=== PATIENT | male | born 1955 | race Caucasian/White ===

== ENCOUNTER 2020-01-08 11:32 | Emergency (ER) | payer OTHER ==
[~2020-01-08] VITALS: Ht 170.2 cm; Wt 90.7 kg
[2020-01-08 11:34] VITALS: BP 106/44
--- NOTE | 2020-01-08 11:42 | NUR ---
64 y/o male [place] from car c/o dizziness and generalized weakness. Pt states he was seen at [facility] 10 days ago for pneumonia, Covid negative at that time. States 6/10 aching pain to right arm. Denies syncope, awake and alert. GCS 15 at this time. VSS, placed on bedside monitor. medhx: stroke, cardiac, HTN, anxiety
--- NOTE | 2020-01-08 11:59 | NUR ---
Dr Carr at bedside examining pt
--- NOTE | 2020-01-08 12:05 | NUR ---
Lab at bedside for blood draw
--- NOTE | 2020-01-08 12:14 | NUR ---
X-Ray at bedside.
--- NOTE | 2020-01-08 12:32 | NUR ---
Contact information-- pts son Stefan [phone]
[2020-01-08 12:36] LABS: BASOPHILS # (AUTO) 0.1 K/uL (0.00-0.22); BASOPHILS % (AUTO) 0.7 % (0.0-2.0); EOSINOPHILS % (AUTO) 0.1 % (0.0-4.0); HEMOGLOBIN 10.9 g/dL (12.0-18.0); LYMPHOCYTES # (AUTO) 0.6 K/uL (2.0-11.5); LYMPHOCYTES % (AUTO) 3.1 % (20.5-51.1); MEAN CORPUSCULAR HEMOGLOBIN 26 pg (27-31); MEAN CORPUSCULAR HGB CONC 32 g/dL (33-37); MEAN CORPUSCULAR VOLUME 79.8 fL (80-94); MONOCYTES # (AUTO) 0.7 K/uL (0.8-1.0); MONOCYTES % (AUTO) 3.6 % (1.7-9.3); NEUTROPHILS # (AUTO) 17.5 K/uL (1.8-7.7); NEUTROPHILS % (AUTO) 92.5 % (42.2-75.2); PLATELET COUNT (AUTO) 462 K/uL (140-450); RED BLOOD CELL COUNT(AUTO) 4.26 MIL/uL (4.20-6.10); RED CELL DISTRIBUTION WIDTH 23.4 % (11.6-13.7); WHITE BLOOD COUNT (AUTO) 18.9 K/uL (4.8-10.8)
--- NOTE | 2020-01-08 12:42 | NUR ---
Pt states he is still unable to urinate, will follow up with patient
[2020-01-08 13:19] LABS: ALBUMIN 2.9 g/dL (3.4-5.0); CARBON DIOXIDE 25.4 mmol/L (21-32); CREATININE 1.8 mg/dL (0.6-1.3); TOTAL BILIRUBIN 0.5 mg/dL (0.0-1.0)
[2020-01-08 13:26] LABS: ANION GAP 16.9 (8-16); POTASSIUM 3.3 mmol/L (3.5-5.1)
[2020-01-08] MEDS ORDERED: NACL 0.9% 1,000 ML IV ONE (14:00)
--- NOTE | 2020-01-08 14:46 | NUR ---
Dr Carr at bedside re-evaluating pt
--- NOTE | 2020-01-08 15:01 | NUR ---
IV discontinued, 2x2 gauze placed over IV site
[2020-01-08 15:02] VITALS: BP 111/71
--- NOTE | 2020-01-08 15:02 | NUR ---
Patient discharged with v/s stable. Written and verbal after care instructions given and explained. Patient verbalized understanding. Ambulatory with steady gait. All questions addressed prior to discharge. Advised to follow up with PMD.
[2020-01-08 15:40] LABS: APPEARANCE,URINE CLEAR (CLEAR); BILIRUBIN,URINE NEGATIVE (NEGATIVE); BLOOD, URINE NEGATIVE (NEGATIVE); COLOR,URINE YELLOW (YELLOW); LEUKOCYTE ESTERASE ,URINE NEGATIVE (NEGATIVE); NITRITE, URINE NEGATIVE (NEGATIVE); UGLUCOSE NEGATIVE (NEGATIVE)
[2020-01-08 16:05] LABS: BARBITURATE, URINE NEGATIVE ng/ml (NEG <=200); BENZODIAZEPINE, URINE NEGATIVE ng/mL (NEG <=200); CANNABINOID, URINE NEGATIVE ng/mL (NEG <=50); COCAINE, URINE NEGATIVE ng/mL (NEG <=300); OPIATE, URINE POSITIVE ng/mL (NEG <=2000); PHENCYCLIDINE SCREEN,URINE NEGATIVE ng/mL (NEG <=25)
== END 2020-01-08 15:02 | disposition home or self-care (01) ==
LOC: MED 11:32
DX: E86.0 Dehydration (principal); R42 Dizziness and giddiness; I11.0 Hypertensive heart disease with heart failure; Z86.73 Personal history of transient ischemic attack (TIA), and cerebral infarction without residual deficits
CPT/HCPCS: 36415; 71045; 80053; 80305; 81003; 83880; 84484; 85025; 93005; 96360; 99285; G0482; J7030; Q0092